=== PATIENT | female | born 1980 | race Caucasian/White ===

== ENCOUNTER 2020-10-19 10:15 | Outpatient (CLI) | payer OTHER | END 2020-10-19 15:00 | disposition home or self-care (01) | LOC: LAB 10:15 | PROVIDERS: ATTEND Obstetrics & Gynecology | DX: N95.8 Other specified menopausal and perimenopausal disorders (principal); E55.9 Vitamin D deficiency, unspecified; E03.8 Other specified hypothyroidism; R97.8 Other abnormal tumor markers ==

== ENCOUNTER 2020-11-14 08:00 | Outpatient (CLI) | payer OTHER | END 2020-11-14 08:30 | disposition home or self-care (01) | LOC: PPH VACUNA 08:00 | PROVIDERS: ATTEND Emergency Medicine Pediatric Emergency Medicine | DX: Z23 Encounter for immunization (principal) ==

== ENCOUNTER 2020-12-21 09:00 | Outpatient (CLI) | payer OTHER | END 2020-12-21 09:30 | disposition home or self-care (01) | LOC: PPH VACUNA 09:00 | PROVIDERS: ATTEND Emergency Medicine Pediatric Emergency Medicine | DX: Z23 Encounter for immunization (principal) ==

== ENCOUNTER → 2021-01-24 10:54 | Outpatient (CLI) | payer OTHER | END | disposition home or self-care (01) | LOC: LAB 10:54 | PROVIDERS: ATTEND Internal Medicine Sports Medicine | DX: N39.0 Urinary tract infection, site not specified (principal) ==

== ENCOUNTER → 2021-02-28 08:00 | Outpatient (CLI) | payer OTHER ==
[~2021-02-28 08:00] MED LIST: METOPROLOL SUCC25 MG PO
== END | disposition home or self-care (01) ==
LOC: NUCLEAR 07:00
DX: R00.2 Palpitations (principal)

== ENCOUNTER 2021-03-02 08:01 | Outpatient (CLI) | payer OTHER | END 2021-03-02 08:19 | disposition home or self-care (01) | LOC: LAB 08:01 | PROVIDERS: ATTEND Internal Medicine | DX: D64.89 Other specified anemias (principal); R10.84 Generalized abdominal pain; E03.8 Other specified hypothyroidism; E78.49 Other hyperlipidemia; I50.22 Chronic systolic (congestive) heart failure; R00.2 Palpitations ==

== ENCOUNTER 2021-03-02 13:34 | Outpatient (CLI) | payer OTHER | END 2021-03-02 13:36 | disposition home or self-care (01) | LOC: SONOGRAMA 13:34 | PROVIDERS: ATTEND Internal Medicine Sports Medicine | DX: E04.1 Nontoxic single thyroid nodule (principal); E04.8 Other specified nontoxic goiter ==

== ENCOUNTER 2021-03-07 12:17 | Outpatient (CLI) | payer OTHER | END 2021-03-07 15:00 | disposition home or self-care (01) | LOC: LAB 12:17 | PROVIDERS: ATTEND Preventive Medicine Occupational Medicine | DX: U07.1 COVID-19 (principal) ==

== ENCOUNTER 2021-03-09 18:03 | Emergency (ER) | payer OTHER ==
[~2021-03-09] VITALS: Ht 152.4 cm; Wt 58.5 kg
[2021-03-09] MEDS ORDERED: METOPROLOL SUCC25 MG PO (18:13)
== END 2021-03-10 04:03 | disposition home or self-care (01) ==
LOC: ER 18:03
DX: R00.0 Tachycardia, unspecified (principal); R00.2 Palpitations; Z20.822 Contact with and (suspected) exposure to COVID-19

== ENCOUNTER 2021-04-27 10:07 | Outpatient (CLI) | payer OTHER | END 2021-04-27 10:13 | disposition home or self-care (01) | LOC: SONOGRAMA 10:07 | DX: R10.2 Pelvic and perineal pain (principal) ==

== ENCOUNTER → 2021-05-18 06:26 | Outpatient (CLI) | payer OTHER | END | disposition home or self-care (01) | LOC: LAB 06:26 | PROVIDERS: ATTEND Internal Medicine | DX: U07.1 COVID-19 (principal); B34.1 Enterovirus infection, unspecified ==

== ENCOUNTER 2021-06-05 10:41 | Outpatient (CLI) | payer OTHER | END 2021-06-05 10:47 | disposition home or self-care (01) | LOC: LAB 10:41 | PROVIDERS: ATTEND Internal Medicine | DX: U07.1 COVID-19 (principal); B34.1 Enterovirus infection, unspecified ==

== ENCOUNTER 2021-09-10 07:35 | Outpatient (CLI) | payer OTHER ==
[2021-09-11] MEDS ORDERED: PEPCID AC20 MG PO (00:40)
[2021-09-11] MEDS ORDERED: METOCLOPRAMIDE10 M1 PO (00:40)
== END 2021-09-10 07:36 | disposition home or self-care (01) ==
LOC: LAB 07:35
PROVIDERS: ATTEND Internal Medicine
DX: U07.1 COVID-19 (principal); B34.1 Enterovirus infection, unspecified

== ENCOUNTER 2021-09-10 19:06 | Emergency (ER) | payer OTHER ==
[~2021-09-10] VITALS: Ht 152.4 cm; Wt 59.0 kg
[2021-09-11] MEDS ORDERED: PEPCID AC20 MG PO (00:40)
[2021-09-11] MEDS ORDERED: METOCLOPRAMIDE10 M1 PO (00:40)
== END 2021-09-11 00:51 | disposition home or self-care (01) ==
LOC: ER 19:06
DX: R11.2 Nausea with vomiting, unspecified (principal); K29.70 Gastritis, unspecified, without bleeding

== ENCOUNTER 2021-10-05 10:47 | Outpatient (CLI) | payer OTHER ==
[~2021-10-05 10:47] MED LIST changes: +METOCLOPRAMIDE10 M1 PO; +PEPCID AC20 MG PO
== END 2021-10-05 15:51 | disposition home or self-care (01) ==
LOC: MRI 10:47
PROVIDERS: ATTEND Obstetrics & Gynecology
DX: R10.2 Pelvic and perineal pain (principal)
CPT/HCPCS: 72197

== ENCOUNTER 2021-10-24 14:13 | Outpatient (CLI) | payer OTHER | END 2021-10-24 14:16 | disposition home or self-care (01) | LOC: LAB 14:13 | PROVIDERS: ATTEND Internal Medicine Sports Medicine | DX: R06.02 Shortness of breath (principal); J20.8 Acute bronchitis due to other specified organisms; J12.89 Other viral pneumonia; J98.8 Other specified respiratory disorders; J06.9 Acute upper respiratory infection, unspecified; A49.1 Streptococcal infection, unspecified site; A49.3 Mycoplasma infection, unspecified site; A49.2 Hemophilus influenzae infection, unspecified site; R05.9 Cough, unspecified; Z20.822 Contact with and (suspected) exposure to COVID-19; Z20.828 Contact with and (suspected) exposure to other viral communicable diseases ==

== ENCOUNTER 2021-10-25 12:52 | Outpatient (CLI) | payer OTHER | END 2021-10-25 13:36 | disposition home or self-care (01) | LOC: RAD 12:52 | PROVIDERS: ATTEND Internal Medicine Pulmonary Disease | DX: J45.31 Mild persistent asthma with (acute) exacerbation (principal); R06.02 Shortness of breath; Z86.16 Personal history of COVID-19 ==

== ENCOUNTER 2021-10-31 10:45 | Outpatient (CLI) | payer OTHER | END 2021-10-31 10:50 | disposition home or self-care (01) | LOC: PPH VACUNA 10:45 | PROVIDERS: ATTEND Emergency Medicine Pediatric Emergency Medicine | DX: Z23 Encounter for immunization (principal) ==

== ENCOUNTER 2021-11-08 08:59 | Outpatient (CLI) | payer OTHER | END 2021-11-08 09:08 | disposition home or self-care (01) | LOC: RAD 08:59 | DX: M99.01 Segmental and somatic dysfunction of cervical region (principal); M99.02 Segmental and somatic dysfunction of thoracic region; M99.03 Segmental and somatic dysfunction of lumbar region; M99.04 Segmental and somatic dysfunction of sacral region; M99.05 Segmental and somatic dysfunction of pelvic region ==

== ENCOUNTER 2021-11-29 07:09 | Outpatient (CLI) | payer OTHER | END 2021-11-29 07:10 | disposition home or self-care (01) | LOC: LAB 07:09 | PROVIDERS: ATTEND Internal Medicine Sports Medicine | DX: D64.9 Anemia, unspecified (principal); E11.9 Type 2 diabetes mellitus without complications; E78.2 Mixed hyperlipidemia; I10 Essential (primary) hypertension; E03.8 Other specified hypothyroidism ==

== ENCOUNTER 2022-01-18 09:17 | Outpatient (CLI) | payer OTHER | END 2022-01-18 09:20 | disposition home or self-care (01) | LOC: MAMO-SONO 09:17 | PROVIDERS: ATTEND Internal Medicine Sports Medicine | DX: Z12.31 Encounter for screening mammogram for malignant neoplasm of breast (principal) ==

== ENCOUNTER 2022-02-20 07:49 | Outpatient (CLI) | payer OTHER | END 2022-02-20 07:53 | disposition home or self-care (01) | LOC: LAB 07:49 | PROVIDERS: ATTEND Internal Medicine | DX: R00.2 Palpitations (principal) ==

== ENCOUNTER 2022-04-04 08:55 | Outpatient (CLI) | payer OTHER | END 2022-04-04 09:07 | disposition home or self-care (01) | LOC: LAB 08:55 | PROVIDERS: ATTEND Internal Medicine | DX: U07.1 COVID-19 (principal); B34.1 Enterovirus infection, unspecified ==

== ENCOUNTER 2022-04-08 07:05 | Outpatient (CLI) | payer OTHER | END 2022-04-08 07:28 | disposition home or self-care (01) | LOC: LAB 07:05 | PROVIDERS: ATTEND Internal Medicine | DX: M54.59 Other low back pain (principal); I10 Essential (primary) hypertension; E03.9 Hypothyroidism, unspecified; Z01.810 Encounter for preprocedural cardiovascular examination; U07.1 COVID-19; B34.1 Enterovirus infection, unspecified ==

== ENCOUNTER → 2022-04-22 06:37 | Outpatient (CLI) | payer OTHER | END | disposition home or self-care (01) | LOC: LAB 06:37 → NUCLEAR 07:00 | PROVIDERS: ATTEND Internal Medicine | DX: B34.1 Enterovirus infection, unspecified (principal); U07.1 COVID-19 ==

== ENCOUNTER 2022-04-22 07:05 | Outpatient (CLI) | payer OTHER | END 2022-04-22 07:06 | disposition home or self-care (01) | LOC: NUCLEAR 07:05 | PROVIDERS: ATTEND Internal Medicine | DX: R00.2 Palpitations (principal); R07.9 Chest pain, unspecified ==

== ENCOUNTER 2022-06-17 09:44 | Outpatient (CLI) | payer OTHER | END 2022-06-17 09:46 | disposition home or self-care (01) | LOC: LAB 09:44 | PROVIDERS: ATTEND Internal Medicine | DX: R05.1 Acute cough (principal); J06.0 Acute laryngopharyngitis ==

== ENCOUNTER 2022-06-27 06:28 | Outpatient (CLI) | payer OTHER | END 2022-06-27 06:29 | disposition home or self-care (01) | LOC: LAB 06:28 | PROVIDERS: ATTEND Internal Medicine | DX: Z01.810 Encounter for preprocedural cardiovascular examination (principal); D64.9 Anemia, unspecified; R10.9 Unspecified abdominal pain; E03.9 Hypothyroidism, unspecified; E78.5 Hyperlipidemia, unspecified; E11.9 Type 2 diabetes mellitus without complications; I10 Essential (primary) hypertension; M54.59 Other low back pain ==

== ENCOUNTER 2022-08-03 14:34 | Emergency (ER) | payer OTHER ==
[~2022-08-03] VITALS: Ht 149.9 cm; Wt 58.1 kg
[2022-08-03] MEDS ORDERED: IPRAT-ALBUT 0.5-3 ML IH (20:19)
[2022-08-03] MEDS ORDERED: MEDROLPACK PO (20:19)
[2022-08-03] MEDS ORDERED: ZITHROMAX TRI-500 MG PO (20:19)
== END 2022-08-03 20:33 | disposition home or self-care (01) ==
LOC: ER 14:34
DX: J20.9 Acute bronchitis, unspecified (principal); R06.02 Shortness of breath; R00.2 Palpitations; Z20.822 Contact with and (suspected) exposure to COVID-19; Z88.6 Allergy status to analgesic agent

== ENCOUNTER 2022-12-11 15:38 | Emergency (ER) | payer OTHER ==
[~2022-12-11] VITALS: Ht 149.9 cm; Wt 56.7 kg
[~2022-12-11 15:38] MED LIST changes: +IPRAT-ALBUT 0.5-3 ML IH; +MEDROLPACK PO; +ZITHROMAX TRI-500 MG PO
[2022-12-11 16:53] LABS: HEMATOCRIT 42.9 % (36.0-45.00); HEMOGLOBIN 14.8 g/dL (12.0-15.00); MEAN CELL VOLUME 88.8 fL (80.00-100.00); MEAN CORPUSCULAR HEMOGLOBIN 30.5 pg (27.00-32.0); MEAN CORPUSCULAR HGB CONC 34.4 g/dl (32.0-36.0); PLATELET COUNT 338 K/uL (150-450); RED BLOOD COUNT 4.83 M/uL (4.00-6.00); RED CELL DISTRIBUTION WIDTH 13.2 % (11.5-14.5)
[2022-12-11 17:22] LABS: BILIRUBIN TOTAL 0.33 mg/dL (0.3-1.2); CALCIUM 8.9 mg/dL (8.5-10.1); CREATININE SERUM 0.7 mg/dL (0.55-1.02); GFR 92.21; GLOBULINA 4.4 G/DL (2.4-3.5); POTASSIUM 3.38 mEq/L (3.5-5.1); TOTAL PROTEIN 8.4 gm/dL (6.4-8.2); proBNP 21 pg/mL (0-51.9)
[2022-12-11 17:26] LABS: TROPONIN I hs < 3.0 PG/ML (42.2-82.3)
== END 2022-12-11 22:54 | disposition home or self-care (01) ==
LOC: ER 15:38
PROVIDERS: General Practice
DX: R00.0 Tachycardia, unspecified (principal); K29.70 Gastritis, unspecified, without bleeding; Z88.6 Allergy status to analgesic agent; Z20.822 Contact with and (suspected) exposure to COVID-19; I10 Essential (primary) hypertension

== ENCOUNTER 2024-12-02 07:12 | Emergency (ER) | payer OTHER ==
[~2024-12-02] VITALS: Ht 149.9 cm; Wt 55.3 kg
[2024-12-02] MEDS ORDERED: ONDANSETRON HCL 2 MG/ML VIAL ONE (07:56)
[2024-12-02] MEDS ORDERED: CETIRIZINE HCL 5MG/5ML BLIST.PACK PO ONE (07:56)
[2024-12-02] MEDS ORDERED: TAMSULOSIN HCL 0.4 MG CAP PO ONE ×2 (07:56→08:00)
[2024-12-02] MEDS ORDERED: CEFTRIAXONE SODIUM 1,000 MG VIAL ONE (07:57)
[2024-12-02] MEDS ORDERED: FAMOTIDINE/PF 20 MG/2 ML VIAL ONE (07:57)
[2024-12-02] MEDS ORDERED: CETIRIZINE HCL 5 MG/5 ML ML PO ONE (08:00)
[2024-12-02] MEDS ORDERED: 0.9 % SODIUM CHLORIDE 1,000 ML IV ONE (08:00)
[2024-12-02] MEDS ORDERED: FAMOtidine 10 MG/ML (4ML VIAL) IV ONE (08:00)
[2024-12-02] MEDS ORDERED: ONDANSETRON HCL 2 MG/ML VIAL IV ONE (08:00)
[2024-12-02] MEDS ORDERED: MORPHINE SULFATE 4 MG/ML CARTRIDGE IV ONE (08:00)
[2024-12-02] MEDS ORDERED: CEFTRIAXONE SODIUM 1,000 MG VIAL IV ONE (08:00)
[2024-12-02 09:05] LABS: URINE APPEARANCE Clear; URINE BILIRRUBIN Negative (NEGATIVE); URINE BLOOD Negative; URINE COLOR Yellow; URINE GLUCOSE Negative (NEGATIVE); URINE KETONE Negative (NEGATIVE); URINE LEUKOCYTE Trace; URINE NITRATE Negative; URINE PROTEIN Negative (NEGATIVE); URINE UROBILINOGEN 0.2 E.U./dl
[2024-12-02 09:07] LABS: URINE BACTERIA 396.0 uL (0.0-1933); URINE EPITHELIAL CELLS 13.6 uL (0.0-38.8); URINE RBC 7.3 uL (0.0-20.8); URINE WBC 2.1 uL (0.0-23.2)
[2024-12-02 09:11] LABS: BASO % 0.8 % (0.1-1.2); EOS # 0.27 (0.04-0.54); EOS % 3.5 % (0.7-7.0); LYMPH # 0.92 (1.18-3.74); LYMPH % 11.8 % (19.3-53.1); MEAN PLATELET VOLUME 10.90 fl (9.4-12.4); MONO # 0.61 (0.24-0.82); MONO % 7.8 % (4.7-12.5); NEUT # 5.93 (1.56-6.13); NEUT % 75.8 % (34.0-71.1); RED CELL DISTRIBUTION WIDTH 12.2 % (11.6-14.4)
[2024-12-02 09:19] LABS: URINE CAST 0.00 uL (0.0-1.40)
[2024-12-02 09:34] LABS: ALT/SGPT 22.0 U/L (12-78); AST/SGOT 15.0 U/L (15-37); BILIRUBIN TOTAL 0.35 mg/dL (0.3-1.2); BUN CREA RATIO 11.0 (7.0-25.0); CREATININE SERUM 0.65 mg/dL (0.55-1.02); GFR 99.48; GLOBULINA 5.2 G/DL (2.4-3.5); GLUCOSE FASTING 113.0 mg/dL (65-100); OSMOLALITY SERUM 280.0 MOSM/KG (275-295)
[2024-12-02 09:35] LABS: INR 1.03
[2024-12-02 09:46] LABS: COVID-19 AG NEGATIVE (NEGATIVE)
[2024-12-02] MEDS ORDERED: LABETALOL HCL 20MG/4ML SYRINGE IV ONE (10:15)
[2024-12-02] MEDS ORDERED: TOPROL XL25 M1 PO (12:50)
== END 2024-12-02 13:13 | disposition home or self-care (01) ==
LOC: ER 07:13
PROVIDERS: General Practice
DX: R10.A1 Flank pain, right side (principal); R00.0 Tachycardia, unspecified; M54.50 Low back pain, unspecified; R00.2 Palpitations; Z20.822 Contact with and (suspected) exposure to COVID-19; I10 Essential (primary) hypertension; Z88.6 Allergy status to analgesic agent